=== PATIENT | female | born 1945 | race Caucasian/White ===

== ENCOUNTER 2016-09-26 16:30 | Emergency (ER) | payer OTHER ==
[2016-09-26 12:27] LABS: BASOPHILS 0.4 %; BASOPHILS ABSOLUTE 0.02 10/3/uL (0.0-0.16); EOSINOPHILS 0.6 %; EOSINOPHILS ABSOLUTE 0.03 10/3/uL (0.0-0.53); ER CBC TAT 0 Hrs 10 Mins; HEMATOCRIT 42.7 % (36.0-48.0); HEMOGLOBIN 15.1 g/dL (12.0-16.0); IMMATURE GRANULOCYTES 0.2 %; IMMATURE GRANULOCYTES ABSOLUTE 0.01 10/3/uL (0.0-0.11); LYMPHOCYTES 28.9 %; LYMPHOCYTES ABSOLUTE 1.56 10/3/uL (0.67-4.30); MANUAL DIFF NO %; MEAN CORPUS HGB CONC 35.4 g/dL (32.0-36.0); MEAN CORPUSCULAR HEMOGLOB 31.5 pg (26.0-34.0); MEAN CORPUSCULAR VOLUME 89.1 fL (80-100); MONOCYTES 14.4 %; MONOCYTES ABSOLUTE 0.78 10/3/uL (0.21-1.20); NEUTROPHILS 55.5 %; PLATELET COUNT 303 10/3/uL (150-400); RBC DISTRIBUTION WIDTH 12.7 % (12.0-16.0); RED CELL COUNT 4.79 10/6/uL (4.0-5.6); WHITE BLOOD CELLS 5.4 10/3/uL (4.5-10.5)
[2016-09-26 12:42] LABS: A/G RATIO 0.7 (0.7-1.9); ALBUMIN 3.5 G/DL (3.5-5.0); ALKALINE PHOSPHATASE 146 U/L (45-117); BUN (BLOOD UREA NITROGEN) 15 MG/DL (6-23); CALCIUM, SERUM 9.3 MG/DL (8.5-10.4); CHLORIDE, SERUM 100 MMOL/L (96-112); CO2 (CARBON DIOXIDE) 28 MMOL/L (24-34); CREATININE 0.68 MG/DL (0.55-1.02); GFR AFRICAN AMERICAN 101 ML/MIN (>=60); GFR NON AFRICAN AMERICAN 87 ML/MIN (>=60); GLOBULIN 4.8 G/DL (2.5-4.1); GLUCOSE, SERUM 76 MG/DL (60-99); POTASSIUM, SERUM 3.9 MMOL/L (3.5-5.3); SGOT(AST) 20 U/L (5-40); SGPT(ALT) 25 U/L (5-65); SODIUM, SERUM 134 MMOL/L (135-148); TOTAL BILIRUBIN 0.5 MG/DL (0-1.2); TOTAL PROTEIN 8.3 G/DL (6.0-8.5)
[2016-09-26 12:57] LABS: ASCORBIC ACID (UR NOT ORDER) NEG (NEG); BILIRUBIN, URINE NEGATIVE (NEG); ER URINALYSIS TAT 0 Hrs 14 Mins; KETONE, URINE NEGATIVE (NEG); LEUKOCYTE ESTERASE(NOT OR SMALL (NEG); NITRITE (URINE) NEG (NEG); WBC (NOT ORDERED) (RFLEX) 2 (0-5)
[~2016-09-26 16:30] MED LIST: CELEXA10 PO; CO Q-10100 MG PO; COCONUT OIL PO; COZAAR100 MG PO; FLORASTOR250 MG PO; MAGOX4 PO; SUPER B COMP PO; TRACE MINERALS PO; VANCOCIN HCL125 MG PO; VITAMIN D31000 UNIT PO; VITC500 PO; VITE PO; [UNRECOGNIZED DRUG - OTHER] PO; [UNRECOGNIZED DRUG - OTHER] PO
== END 2016-09-26 16:37 | disposition home or self-care (01) ==
LOC: ER 16:30
PROVIDERS: Emergency Medicine
DX: A04.7 Enterocolitis due to Clostridium difficile (principal); I10 Essential (primary) hypertension; F41.9 Anxiety disorder, unspecified; Z88.0 Allergy status to penicillin; Z88.2 Allergy status to sulfonamides; Z79.899 Other long term (current) drug therapy
CPT/HCPCS: 80053; 81001; 83690; 85025; 87045; 87046; 87046-59; 87086; 87328; 87329; 87493; 87493-59; 87899; 87899-59; 89055; 99284

== ENCOUNTER 2016-10-10 16:50 | Inpatient (IN) | payer OTHER ==
--- NOTE | ~2016-10-10 | CN ---
Consultation Report [facility] [address] [place]. [address] NAME: JOURDAN HINDS : 41 STATUS : ADM Keyon PAT#: [id number] AGE: 71 ADM/REG DATE : 10/10/16 MR#: [id number] REPORT SERV DATE: 10/11/16 DICTATED BY: FRANCESCO VALLES DATE: 10/11/16 REPORT STATUS : Draft TRANSCRIBED BY: MODMona DATE: 10/11/16 GI CONSULTATION DATE OF CONSULTATION: 10/11/2016 REASON FOR CONSULTATION: Evaluation and management of chronic diarrhea, history of C diff, as well as possible collagenous colitis. HISTORY OF PRESENT ILLNESS: Ms. Hinds is a very pleasant, 71-year-old, , female patient, who has been seen by Dr. Reyes Woodson since July of this year. Her previous informatica mdm developer is Dr. Amado Banks in [place], [place]. We saw her in the hospital in July of this year for diarrhea, but she was diagnosed with C diff and was treated with vancomycin. She had seen Dr. Banks in the past and had a recent upper and lower scopes and per the son, she was diagnosed with some type of colitis. He states that he was told she had ulcers in her colon. She was placed on a medication, which she took three times a day, as well as another medication that she took and tapered off. He states that she had improved somewhat. At that time, her diarrhea came back. He brought her to the hospital secondary to the diarrhea and a change of mental status, and then she was diagnosed with C diff. She was seen in followup in 08/28/[address] Woodson. She was having diarrhea again after completing a vancomycin regimen. She was rechecked and had C diff again and was placed on vancomycin, a long course taper. Per the son, she has continued to lose weight, around 40-50 pounds. She has had increasing weakness. He tells me that she is all night long having diarrhea, 15-20 stools a day. She still has diarrhea during the daytime hours, but not quite as excessive. She has not seen any blood in her bowel movements. She denies really any true abdominal pain, but her main complaint is weakness and frustration with the amount of diarrhea that she has been having. In the outpatient setting, she has been on vancomycin, and has been seen by Infectious Disease, Dr. Jose Miranda for potential stool transplantation. She has also been on Pepto-Bismol, Questran, multiple antidiarrheals, and is still presently taking vancomycin. She has had two recent negative C diff tests. I have discussed with Dr. Miranda, he feels like that her diarrhea at this point, is not secondary to C diff and feels like she may be have been colonized. I have discussed with the patient as well as the patient's son who is present at the bedside. We will plan on pursuing upper endoscopy, as well as colonoscopy to rule out any celiac disease or collagenous colitis. Risks, benefits, alternatives, and complications were detailed for them to include, but not limited to risk of bleeding, perforation, infection, reaction to medications, as well as cardiac and pulmonary side effects. She is agreeable to proceed. PAST MEDICAL HISTORY: Chronic diarrhea, "colitis," C diff, weight loss, hypertension, anxiety, and tobacco abuse. PAST SURGICAL HISTORY: Includes appendectomy and hysterectomy. FAMILY HISTORY: Father with a history of colon cancer. Consultation Report [address] [place]. [address] NAME: JOURDAN HINDS : 41 STATUS : ADM Keyon PAT#: [id number] AGE: 71 ADM/REG DATE : 10/10/16 MR#: [id number] REPORT SERV DATE: 10/11/16 DICTATED BY: FRANCESCO VALLES DATE: 10/11/16 REPORT STATUS : Draft TRANSCRIBED BY: CAITLYN DATE: 10/11/16 SOCIAL HISTORY: Positive for tobacco, one pack per day. No alcohol or illicits. Presently, she is living with her son and hjrtxxue-cy-awl. ALLERGIES: LISTED TO PENICILLIN AND SULFA. HOME MEDICATIONS: Vitamin C, vitamin B, Pepto-Bismol, vitamin D3, Prevalite, dicyclomine, Cozaar, magnesium oxide, probiotic, Gaviscon supplement, and vancomycin. REVIEW OF SYSTEMS: A 10-point review of systems has been obtained with pertinent positives being addressed in the history of present illness. PERTINENT LABORATORY DATA: Sodium is 140, potassium 4.0, BUN is 6, creatinine 0.56. White blood cell count 5.2, hemoglobin 11.5, hematocrit 33.5, platelet count of 294. INR of 1. PHYSICAL EXAMINATION: VITAL SIGNS: Temperature 97.5, pulse 73, respirations 16, blood pressure 161/77. GENERAL: Reveals an alert, female, resting in bed with no obvious focal deficits. She is cooperative. She is in no apparent distress. She is awake, alert, and oriented x3. HEAD, EARS, EYES, NOSE, AND THROAT: Anicteric. Pupils are equal, round, and reactive to light and accommodation. Normocephalic and atraumatic. NECK: No JVD. No palpable nodes. Supple. LUNGS: Clear in the upper lobes. Diminished bilaterally in the bases with normal respiratory effort exhibited. Equal expansion. CARDIOVASCULAR SYSTEM: Regular rate and rhythm. ABDOMEN: Soft, nondistended, nontender. Active bowel sounds in all four quadrants. No organomegaly. No rebound or guarding elicited on exam. EXTREMITIES: No edema. Normal distal pulses. SKIN: Warm, dry, and intact. ASSESSMENT AND PLAN: 1. Intractable diarrhea. Question if this could be secondary to collagenous colitis. Rule out celiac disease. 2. History of C diff with negative testing x2. [place] to be colonized by Infectious Disease. 3. History of "colitis" in the past. 4. Tobacco abuse. PLAN: 1. Clear liquid diet. 2. Bowel prep. 3. Stool studies. 4. Budesonide 9 mg p.o. daily. 5. EGD colon on the with Dr. Velazquez. The other recommendations to follow endoscopy. Consultation Report [address] [place]. [address] NAME: JOURDAN HINDS Tanika : 41 STATUS : ADM Keyon PAT#: [id number] AGE: 71 ADM/REG DATE : 10/10/16 MR#: [id number] REPORT SERV DATE: 10/11/16 DICTATED BY: FRANCESCO VALLES DATE: 10/11/16 REPORT STATUS : Draft TRANSCRIBED BY: CAITLYN DATE: 10/11/16 EBER/CAITLYN ROBBI Arechiga / [id number] CC: MD Michelet Rees M.D.
--- NOTE | ~2016-10-10 | EGD ---
EGD REPORT [facility] [address] [address] NAME: JOURDAN HINDS : 41 STATUS : DIS IN PAT#: [id number] AGE: 71 ADM/REG DATE : 10/10/16 MR#: [id number] REPORT SERV DATE: 10/21/16 DICTATED BY: KEVIN SHAH DATE: 10/21/16 REPORT STATUS : Draft TRANSCRIBED BY: [facility] DATE: 10/21/16 Endoscopy Center Patient Name: Jourdan Hinds Date of : 1945 Attending MD: KEVIN SHAH MD Procedure Date No Time: 10/12/2016 Procedure: Upper GI endoscopy Indications: Dyspepsia, Nausea with vomiting Referring MD: JET ZAMORA MD Medicines: Propofol per Anesthesia Complications: No immediate complications. Procedure: Pre-Anesthesia Assessment: - ASA Grade Assessment: II - A patient with mild systemic disease. After obtaining informed consent, the endoscope was passed under direct vision. Throughout the procedure, the patient's blood pressure, pulse, and oxygen saturations were monitored continuously. The GIF H190 [id number] was introduced through the mouth, and advanced to the second part of duodenum. The upper GI endoscopy was accomplished without difficulty. The patient tolerated the procedure well. Findings: The examined esophagus was normal. Scattered mild inflammation characterized by congestion (edema) and erythema was found in the gastric antrum. Biopsies were taken with a cold forceps for histology. The examined duodenum was normal. Biopsies were taken with a cold forceps for evaluation of celiac disease. Impression: - Normal esophagus. - Gastritis. Biopsied. - Normal examined duodenum. Biopsied. Recommendation: - Await pathology results. Procedure Code(s): --- Professional --- 55433, Esophagogastroduodenoscopy, flexible, transoral; with biopsy, single or multiple Diagnosis Code(s): --- Professional --- K29.70, Gastritis, unspecified, without bleeding K30, Functional dyspepsia R11.2, Nausea with vomiting, unspecified EGD REPORT [facility] [address] [address] NAME: JOURDAN HINDS Tanika : 41 STATUS : DIS IN PAT#: [id number] AGE: 71 ADM/REG DATE : 10/10/16 MR#: [id number] REPORT SERV DATE: 10/21/16 DICTATED BY: KEVIN SHAH. DATE: 10/21/16 REPORT STATUS : Draft TRANSCRIBED BY: [employer] DATE: 10/21/16 CPT copyright 2013 [employer]. All rights reserved. The codes documented in this report are preliminary and upon auditing coder review may be revised to meet current compliance requirements. KEVIN SHAH MD 10/12/2016 7:22 AM This report has been signed electronically. Number of Addenda: 0 Note Initiated On: 10/12/2016 6:55 AM Scope Withdrawal Time 0 hours 0 minutes 0 seconds [address] [address]
--- NOTE | ~2016-10-10 | DS ---
Discharge Summary [place] [id number] [facility] [place] [address] NAME: JOURDAN HINDS : 41 STATUS : DIS IN PAT#: [id number] AGE: 71 ADM/REG DATE : 10/10/16 MR#: [id number] REPORT SERV DATE: 10/15/16 DICTATED BY: VANCE KRAUSE DATE: 10/15/16 REPORT STATUS : Draft TRANSCRIBED BY: MODL DATE: 10/15/16 ADMISSION DATE: 10/10/2016 DISCHARGE DATE: 10/15/2016 DISCHARGE DIAGNOSES: 1. Intractable diarrhea secondary to collagenous colitis. 2. Previous history of collagenous colitis. 3. Previous history of Clostridium difficile colitis. 4. Hypertension. 5. Anxiety. 6. Tobacco abuse. 7. Abnormal brain MRI in July 2016, possible NPH. Outpatient lumbar puncture, large volume without change in mental status per son. Further outpatient neurology evaluation pending. OPERATION AND PROCEDURES: 10/12/2016, colonoscopy and EGD, Dr. Velazquez. PRESENT ILLNESS: This is a 71-year-old white female who was admitted by Dr. Salcedo on 10/10/2016 with intractable diarrhea as outlined on admission history and physical examination. ADDITIONAL HISTORY: Per Dr. Salcedo. PHYSICAL EXAMINATION: Per Dr. Salcedo. ADMISSION LABORATORY: Per Dr. Slacedo. HOSPITAL COURSE: Her hospital course from admission through 10/14/2016 is as outlined on interim summary dictated by Dr. Salcedo. The patient was seen by the undersigned today. She was having formed stools that were not watery. Her p.o. intake was satisfactory without nausea. She had no pain issues. She was ambulatory and not dizzy. Her vital signs were stable and there were no significant abnormalities on exam. A BMP and CBC were normal. At this point in her hospitalization, it was felt she had achieved a level of improvement and stability where she could be safely discharged to home with outpatient followup to see Dr. Velazquez and Dr. Woodson's office next week. Her son will contact her primary care physician, Dr. Guerrero in [place] for a followup. She is to have Neurology followup scheduled through the Neurosurgery office Dr. Acosta. She will have home health care evaluation and treatment to include PT/OT eval and treatment, medication reconciliation, home evaluation. Discharge Summary [place] [address] [place]. [address] NAME: JOURDAN HINDS : 41 STATUS : DIS IN PAT#: [id number] AGE: 71 ADM/REG DATE : 10/10/16 MR#: [id number] REPORT SERV DATE: 10/15/16 DICTATED BY: VANCE KRAUSE DATE: 10/15/16 REPORT STATUS : Draft TRANSCRIBED BY: MODL DATE: 10/15/16 DISCHARGE MEDICATIONS: Pending outpatient followup. Budesonide 9 mg p.o. daily, Questran 4 mg p.o. b.i.d., Bentyl 10 mg p.o. a.c. and h.s., Imodium 4 mg before meals and at bedtime unless constipation, losartan 100 mg daily, stress tab with C daily, Atarax 12.5 mg every six hours, Pepto-Bismol two tablets three times daily as needed, nicotine patch 21 mg daily. Discharge time greater than 30 minutes. DD/MODL Vance Krause M.D. / [id number] CC: Josh Cheng M.D. Vijaykurmar Patel, M.D.
--- NOTE | ~2016-10-10 | IDS ---
Interim Discharge Summary [facility] [address] [place]. [address] NAME: JOURDAN HINDS : 41 STATUS : ADM Keyon PAT#: [id number] AGE: 71 ADM/REG DATE : 10/10/16 MR#: [id number] REPORT SERV DATE: 10/15/16 DICTATED BY: ROMREO CHRISTIAN DATE: 10/14/16 REPORT STATUS : Draft TRANSCRIBED BY: MODL DATE: 10/14/16 ADMISSION DATE: 10/10/2016 DISCHARGE DATE: WORKING DIAGNOSES: 1. 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 2. Recurrent Clostridium difficile on p.o. vancomycin taper, status post negative Clostridium difficile PCR x2. 3. Smoking. 4. Hypertension. 5. Anxiety. CONSULTS: 1. GI. 2. ID. PROCEDURES AND IMAGING: Colonoscopy performed on Friday showed normal colon. Biopsies were taken and the pathology is still pending at this time. Patient also had an EGD on Friday, which was grossly benign. HOSPITAL COURSE: This is a 71-year-old lady who was admitted to the hospital with intractable diarrhea. For details, please refer to my own H and P dated 10/11/2016. In summary, patient was admitted and was evaluated for a secretory diarrhea and probable exacerbation of underlying collagenous microscopic colitis. Patient apparently came with a diagnosis of collagenous microscopic colitis from an outside facility and thus GI was involved and they went ahead and performed a colonoscopy. The biopsies from the colonoscopy are still pending at this time. The patient was also started on a low-dose Anucort and by Friday night patient experienced improvement of her diarrhea. On Friday, patient requested nicotine patch which was given to her and then Friday night patient started having uncontrollable diarrhea again. Since there is a high association with smoking with microscopic colitis the nicotine patch was discontinued and the following night patient's diarrhea slowed down again. As patient is still continuing to have diarrhea that keeps her up at night, the plan is to follow up the pathology report from biopsy and if it is consistent with microscopic colitis, perhaps the doses of Entocort may be increased to better control the diarrhea. Otherwise, patient has remained hemodynamically stable throughout the entire hospital stay with stable labs. Patient is ready for discharge home any time when her diarrhea is better controlled. JACOB/CAITLYN Romero Christian MD / [id number] Interim Discharge Summary [address] [address] NAME: JOURDAN HINDS : 41 STATUS : ADM [place]on PAT#: [id number] AGE: 71 ADM/REG DATE : 10/10/16 MR#: [id number] REPORT SERV DATE: 10/15/16 DICTATED BY: ROMERO CHRISTIAN DATE: 10/14/16 REPORT STATUS : Draft TRANSCRIBED BY: MODL DATE: 10/14/16 CC: MD Michelet Rees M.D.
--- NOTE | ~2016-10-10 | EGD ---
EGD REPORT [facility] [address] [address] NAME: JOURDAN HINDS : 41 STATUS : ADM Keyon PAT#: [id number] AGE: 71 ADM/REG DATE : 10/10/16 MR#: [id number] REPORT SERV DATE: 10/12/16 DICTATED BY: KEVIN SHAH DATE: 10/12/16 REPORT STATUS : Draft TRANSCRIBED BY: [facility] DATE: 10/12/16 Endoscopy Center Patient Name: Jourdan Hinds Date of : 1945 Attending MD: KEVIN SHAH MD Procedure Date No Time: 10/12/2016 Procedure: Upper GI endoscopy Indications: Dyspepsia, Nausea with vomiting Referring MD: JET ZAMORA MD Medicines: Propofol per Anesthesia Complications: No immediate complications. Procedure: Pre-Anesthesia Assessment: - ASA Grade Assessment: II - A patient with mild systemic disease. After obtaining informed consent, the endoscope was passed under direct vision. Throughout the procedure, the patient's blood pressure, pulse, and oxygen saturations were monitored continuously. The GIF H190 [id number] was introduced through the mouth, and advanced to the second part of duodenum. The upper GI endoscopy was accomplished without difficulty. The patient tolerated the procedure well. Findings: The examined esophagus was normal. Scattered mild inflammation characterized by congestion (edema) and erythema was found in the gastric antrum. Biopsies were taken with a cold forceps for histology. The examined duodenum was normal. Biopsies were taken with a cold forceps for evaluation of celiac disease. Impression: - Normal esophagus. - Gastritis. Biopsied. - Normal examined duodenum. Biopsied. Recommendation: - Await pathology results. Procedure Code(s): --- Professional --- 77037, Esophagogastroduodenoscopy, flexible, transoral; with biopsy, single or multiple Diagnosis Code(s): --- Professional --- K29.70, Gastritis, unspecified, without bleeding K30, Functional dyspepsia R11.2, Nausea with vomiting, unspecified EGD REPORT [facility] [address] [address] NAME: JOURDAN HINDS Tanika : 41 STATUS : ADM [place] PAT#: [id number] AGE: 71 ADM/REG DATE : 10/10/16 MR#: [id number] REPORT SERV DATE: 10/12/16 DICTATED BY: KEVIN SHAH. DATE: 10/12/16 REPORT STATUS : Draft TRANSCRIBED BY: [employer] DATE: 10/12/16 CPT copyright 2013 [employer]. All rights reserved. The codes documented in this report are preliminary and upon care attendant review may be revised to meet current compliance requirements. KEVIN SHAH MD 10/12/2016 7:22 AM This report has been signed electronically. Number of Addenda: 0 Note Initiated On: 10/12/2016 6:55 AM Scope Withdrawal Time 0 hours 0 minutes 0 seconds [address] [address]
--- NOTE | ~2016-10-10 | EGD ---
EGD REPORT [facility] [address] [address] NAME: JOURDAN HINDS : 41 STATUS : ADM Keyon PAT#: [id number] AGE: 71 ADM/REG DATE : 10/10/16 MR#: [id number] REPORT SERV DATE: 10/12/16 DICTATED BY: KEVIN SHAH DATE: 10/12/16 REPORT STATUS : Draft TRANSCRIBED BY: [facility] DATE: 10/12/16 Endoscopy Center Patient Name: Jourdan Hinds Date of : 1945 Attending MD: KEVIN SHAH MD Procedure Date No Time: 10/12/2016 Procedure: Colonoscopy Indications: Chronic diarrhea Referring MD: JET ZAMORA MD Medicines: Propofol per Anesthesia Complications: No immediate complications. Procedure: Pre-Anesthesia Assessment: - ASA Grade Assessment: II - A patient with mild systemic disease. After I obtained informed consent, the scope was passed under direct vision. Throughout the procedure, the patient's blood pressure, pulse, and oxygen saturations were monitored continuously. The [facility] [id number] was introduced through the anus and advanced to 10 cm into the ileum. The colonoscopy was performed without difficulty. The patient tolerated the procedure well. The quality of the bowel preparation was excellent. Findings: The perianal and digital rectal examinations were normal. Multiple small-mouthed diverticula were found in the sigmoid colon. The exam was otherwise without abnormality. Biopsies were taken with a cold forceps from the entire colon for evaluation of microscopic colitis. The terminal ileum appeared normal. Impression: - Diverticulosis in the sigmoid colon. - The examination was otherwise normal. - The examined portion of the ileum was normal. Recommendation: - Await pathology results. - If biopsies show collagenous colitis, will need to start steroids given failure to Pepto. Procedure Code(s): --- Professional --- 69652, Colonoscopy, flexible, proximal to splenic flexure; with biopsy, single or multiple Diagnosis Code(s): --- Professional --- K57.30, Diverticulosis of large intestine without EGD REPORT [facility] [address] [address] NAME: JOURDAN HINDS Tanika : 41 STATUS : ADM Keyon PAT#: [id number] AGE: 71 ADM/REG DATE : 10/10/16 MR#: [id number] REPORT SERV DATE: 10/12/16 DICTATED BY: KEVIN SHAH. DATE: 10/12/16 REPORT STATUS : Draft TRANSCRIBED BY: [employer] DATE: 10/12/16 perforation or abscess without bleeding K52.9, Noninfective gastroenteritis and colitis, unspecified CPT copyright 2013 [employer]. All rights reserved. The codes documented in this report are preliminary and upon water superintendent review may be revised to meet current compliance requirements. KEVIN SHAH MD 10/12/2016 7:24 AM This report has been signed electronically. Number of Addenda: 0 Note Initiated On: 10/12/2016 6:[address] [place], [place] [address] [place] [address]
--- NOTE | ~2016-10-10 | HP ---
History And Physical [place] [id number] [facility] [place]. [address] NAME: JOURDAN HINDS : 41 STATUS : ADM [place] PAT#: [id number] AGE: 71 ADM/REG DATE : 10/10/16 MR#: [id number] REPORT SERV DATE: 10/11/16 DICTATED BY: ROMERO CHRISTIAN DATE: 10/10/16 REPORT STATUS : Draft TRANSCRIBED BY: MODL DATE: 10/10/16 DATE OF ADMISSION: 10/10/2016 CHIEF COMPLAINT: Diarrhea. HISTORY OF PRESENT ILLNESS: This is a 71-year-old lady with history of microscopic collagenous colitis as well as Clostridium difficile, presenting with intractable diarrhea. The patient was actually directly admitted via Dr. Woodson's office. The patient has apparently been suffering from worsening diarrhea over the past few weeks. The patient does have a history of recurrent Clostridium difficile for which the patient follows with Dr. Miranda. The patient is currently being evaluated for fecal transplant. However, as recent as one week ago, stool was checked for Clostridium difficile which was negative, and the patient is still on prolonged p.o. vancomycin taper. Over the past few weeks, the diarrhea has gotten worse. It is nonbloody and nonfoul smelling. It is very loose and almost watery. The patient did not have any fevers or chills. The patient also did not have any significant abdominal pain with the diarrhea. The patient has not had any recent antibiotic therapy other than the p.o. vancomycin. The patient has not suffered any weight loss. The patient did grow weak with the diarrhea. Outpatient treatments to slow the diarrhea has not been successful. The patient was thus asked for direct admission to the hospital to continue further care. Interestingly, the patient's son reports that diarrhea is actually worse at night and not as bad during the day. Also, diarrhea does not seem to be related to p.o. intake. REVIEW OF SYSTEMS: The patient has not had any fevers or chills. Also, 14-point review of systems reviewed and negative other than mentioned above. MEDICATIONS: The list is still pending at this time. PAST MEDICAL HISTORY: 1. Collagenous microscopic colitis. 2. Recurrent Clostridium difficile, for which the patient remains on prolonged p.o. vancomycin taper. The patient follows with Dr. Miranda, and the patient is currently being evaluated for fecal transplant. 3. Hypertension. 4. Anxiety. 5. Smoking. PAST SURGICAL HISTORY: 1. Appendectomy. 2. Hysterectomy. FAMILY HISTORY: 1. The patient's mother suffered from a cerebral aneurysm. 2. The patient's father had colon cancer. 3. The patient's siblings had leukemia and colon cancers. History And Physical [address] [address] NAME: JOURDAN HINDS : 41 STATUS : ADM [place] PAT#: [id number] AGE: 71 ADM/REG DATE : 10/10/16 MR#: [id number] REPORT SERV DATE: 10/11/16 DICTATED BY: ROMERO CHRISTIAN DATE: 10/10/16 REPORT STATUS : Draft TRANSCRIBED BY: CAITLYN DATE: 10/10/16 SOCIAL HISTORY: The patient does continues to smoke about one pack per day. The patient otherwise does not use any illicit drugs, and she does not consume alcohol. The patient lives at home with her son who is at bedside. PHYSICAL EXAMINATION: VITAL SIGNS: Temperature 97.7, blood pressure 146/78, pulse 93, respiratory rate 18, saturating 97% on room air. NEUROLOGIC: The patient is alert and oriented x3 with no focal neurologic deficits. GENERAL: The patient is awake, does not appear to be in acute distress, and she is cooperative. NECK: No JVD. No lymphadenopathy. Normal thyroid. CHEST: No midline sternotomy scar and no tenderness to palpation. LUNGS: Clear to auscultation bilaterally with normal respiratory effort on room air. CARDIOVASCULAR: Regular rate and rhythm with no murmurs, rubs, or gallops, and PMI is nondisplaced. ABDOMEN: Soft, nontender, with active bowel sounds, and no organomegaly. EXTREMITIES: No edema. Normal distal pulses. No calf tenderness. SKIN: Clean, dry, warm, and intact. LABORATORY DATA: There are no labs currently. ASSESSMENT: This is a 71-year-old lady with history of collagenous microscopic colitis as well as recurrent Clostridium difficile presenting with intractable diarrhea. 1. Intractable diarrhea, clinical history consistent with secretory diarrhea. 2. Recurrent Clostridium difficile, the patient is currently on prolonged p.o. vancomycin taper. The patient is also being evaluated for fecal transplant. 3. Baseline history of microscopic collagenous colitis. 4. Hypertension. 5. Anxiety. 6. Smoking. PLAN: My plan is to admit the patient under telemetry monitoring. The patient will be given IV fluid resuscitation. I will go ahead and check labs to include CBC as well as CMP. I will also check stool studies to include cultures, white blood cell count, ova and parasites, and to repeat Clostridium difficile. I will also check stool sodium and chloride. I will also check TSH level. I will go ahead and get GI consultation, and I will also notify Infectious Disease of the patient's admission. Further plans pending results of the above. Otherwise, the patient will also be seen by physical therapy given increasing weakness. For the rest of the stable past medical conditions including hypertension, anxiety, et al, I will continue home medications when home medication list becomes available. Standard DVT prophylaxis. The patient is full code at this time. JACOB/CAITLYN History And Physical [address] [address] NAME: JOURDAN HINDS : 41 STATUS : ADM [place] PAT#: [id number] AGE: 71 ADM/REG DATE : 10/10/16 MR#: [id number] REPORT SERV DATE: 10/11/16 DICTATED BY: ROMERO CHRISTIAN DATE: 10/10/16 REPORT STATUS : Draft TRANSCRIBED BY: CAITLYN DATE: 10/10/16 Romero Christian MD / [id number] CC: MD Michelet Rees M.D. Vijaykurmar Patel, M.D. Mark Anderson, M.D.
[2016-10-10] MEDS ORDERED: PREVALITE4 G1 PO (18:48)
[2016-10-10] MEDS ORDERED: BENTYL10 PO (18:49)
[2016-10-10] MEDS ORDERED: COZAAR100 MG PO (18:49)
[2016-10-10] MEDS ORDERED: PROBIOTIC PO (18:51)
[2016-10-10] MEDS ORDERED: PEPTO-BISMOL TA1 TAB PO (18:51)
[2016-10-10] MEDS ORDERED: VITC500 PO (18:52)
[2016-10-10] MEDS ORDERED: [UNRECOGNIZED DRUG - OTHER] PO (18:52)
[2016-10-10] MEDS ORDERED: VITAMIN B PO (18:52)
[2016-10-10] MEDS ORDERED: VITAMIN D31000 UNIT PO (18:53)
[2016-10-10] MEDS ORDERED: MAGOX4 PO (18:54)
[2016-10-10 18:57] LABS: BASOPHILS 0.4 %; BASOPHILS ABSOLUTE 0.02 10/3/uL (0.0-0.16); EOSINOPHILS 1.4 %; EOSINOPHILS ABSOLUTE 0.08 10/3/uL (0.0-0.53); HEMOGLOBIN 12.6 g/dL (12.0-16.0); IMMATURE GRANULOCYTES 0.2 %; IMMATURE GRANULOCYTES ABSOLUTE 0.01 10/3/uL (0.0-0.11); LYMPHOCYTES ABSOLUTE 1.83 10/3/uL (0.67-4.30); MEAN CORPUS HGB CONC 34.4 g/dL (32.0-36.0); MEAN CORPUSCULAR HEMOGLOB 30.7 pg (26.0-34.0); MEAN CORPUSCULAR VOLUME 89.1 fL (80-100); MEAN PLATELET VOLUME 9.5 fL (9.2-13.0); MONOCYTES 15.5 %; MONOCYTES ABSOLUTE 0.86 10/3/uL (0.21-1.20); NEUTROPHILS 49.5 %; NEUTROPHILS ABSOLUTE 2.74 10/3/uL (2.02-8.40); PLATELET COUNT 305 10/3/uL (150-400); RBC DISTRIBUTION WIDTH 12.8 % (12.0-16.0); RED CELL COUNT 4.11 10/6/uL (4.0-5.6); WHITE BLOOD CELLS 5.5 10/3/uL (4.5-10.5)
[2016-10-10] MEDS ORDERED: VANCOCIN HCL125 MG PO ×2 (19:01→19:02)
[2016-10-10 19:02] LABS: HEMATOCRIT 36.6 % (36.0-48.0); MANUAL DIFF NO %
[2016-10-10 19:04] LABS: PARTIAL THROMBO TIME 29.2 SEC (22.5-37.2); PROTIME (NOT ORD) 12.7 SEC (12.0-14.5)
[2016-10-10 19:22] LABS: CALCIUM, SERUM 8.4 MG/DL (8.5-10.4); CHLORIDE, SERUM 101 MMOL/L (96-112); CO2 (CARBON DIOXIDE) 32 MMOL/L (24-34); CREATININE 0.62 MG/DL (0.55-1.02); GFR AFRICAN AMERICAN 104 ML/MIN (>=60); GFR NON AFRICAN AMERICAN 89 ML/MIN (>=60); GLUCOSE, SERUM 82 MG/DL (60-99); POTASSIUM, SERUM 3.6 MMOL/L (3.5-5.3); SGOT(AST) 13 U/L (5-40); SGPT(ALT) 18 U/L (5-65); SODIUM, SERUM 137 MMOL/L (135-148); TOTAL BILIRUBIN 0.3 MG/DL (0-1.2)
[2016-10-10 19:23] LABS: A/G RATIO 0.7 (0.7-1.9); ALBUMIN 2.5 G/DL (3.5-5.0); ALKALINE PHOSPHATASE 94 U/L (45-117); BUN (BLOOD UREA NITROGEN) 9 MG/DL (6-23); GLOBULIN 3.8 G/DL (2.5-4.1); TOTAL PROTEIN 6.3 G/DL (6.0-8.5)
[2016-10-10 20:05] LABS: PROCALCITONIN <0.05 ng/mL (<0.5)
[2016-10-11 06:06] LABS: BUN (BLOOD UREA NITROGEN) 6 MG/DL (6-23); CALCIUM, SERUM 8.6 MG/DL (8.5-10.4); CHLORIDE, SERUM 107 MMOL/L (96-112); CREATININE 0.56 MG/DL (0.55-1.02); GFR AFRICAN AMERICAN 107 ML/MIN (>=60); GFR NON AFRICAN AMERICAN 93 ML/MIN (>=60); GLUCOSE, SERUM 81 MG/DL (60-99); SODIUM, SERUM 140 MMOL/L (135-148)
[2016-10-11 06:10] LABS: BASOPHILS 0.2 %; BASOPHILS ABSOLUTE 0.01 10/3/uL (0.0-0.16); EOSINOPHILS 1.9 %; HEMATOCRIT 33.5 % (36.0-48.0); HEMOGLOBIN 11.5 g/dL (12.0-16.0); IMMATURE GRANULOCYTES 0.2 %; IMMATURE GRANULOCYTES ABSOLUTE 0.01 10/3/uL (0.0-0.11); LYMPHOCYTES 32.6 %; MEAN CORPUS HGB CONC 34.3 g/dL (32.0-36.0); MEAN CORPUSCULAR HEMOGLOB 30.1 pg (26.0-34.0); MEAN CORPUSCULAR VOLUME 87.7 fL (80-100); MEAN PLATELET VOLUME 9.4 fL (9.2-13.0); MONOCYTES 14.6 %; MONOCYTES ABSOLUTE 0.76 10/3/uL (0.21-1.20); NEUTROPHILS 50.5 %; NEUTROPHILS ABSOLUTE 2.64 10/3/uL (2.02-8.40); PLATELET COUNT 294 10/3/uL (150-400); RBC DISTRIBUTION WIDTH 12.9 % (12.0-16.0); RED CELL COUNT 3.82 10/6/uL (4.0-5.6); WHITE BLOOD CELLS 5.2 10/3/uL (4.5-10.5)
[2016-10-11 06:11] LABS: CO2 (CARBON DIOXIDE) 27 MMOL/L (24-34)
[2016-10-11 06:13] LABS: MANUAL DIFF NO %
[2016-10-12 03:43] LABS: BASOPHILS 0.2 %; BASOPHILS ABSOLUTE 0.01 10/3/uL (0.0-0.16); EOSINOPHILS 0.8 %; EOSINOPHILS ABSOLUTE 0.04 10/3/uL (0.0-0.53); HEMOGLOBIN 11.6 g/dL (12.0-16.0); IMMATURE GRANULOCYTES 0.2 %; IMMATURE GRANULOCYTES ABSOLUTE 0.01 10/3/uL (0.0-0.11); LYMPHOCYTES 38.3 %; LYMPHOCYTES ABSOLUTE 1.97 10/3/uL (0.67-4.30); MEAN CORPUS HGB CONC 34.1 g/dL (32.0-36.0); MEAN CORPUSCULAR VOLUME 87.9 fL (80-100); MEAN PLATELET VOLUME 9.5 fL (9.2-13.0); MONOCYTES 11.8 %; MONOCYTES ABSOLUTE 0.61 10/3/uL (0.21-1.20); NEUTROPHILS 48.7 %; NEUTROPHILS ABSOLUTE 2.51 10/3/uL (2.02-8.40); PLATELET COUNT 305 10/3/uL (150-400); RBC DISTRIBUTION WIDTH 12.7 % (12.0-16.0); RED CELL COUNT 3.87 10/6/uL (4.0-5.6); WHITE BLOOD CELLS 5.2 10/3/uL (4.5-10.5)
[2016-10-12 03:44] LABS: MANUAL DIFF NO %
[2016-10-12 03:58] LABS: BUN (BLOOD UREA NITROGEN) 4 MG/DL (6-23); CALCIUM, SERUM 8.7 MG/DL (8.5-10.4); CHLORIDE, SERUM 105 MMOL/L (96-112); CO2 (CARBON DIOXIDE) 26 MMOL/L (24-34); CREATININE 0.47 MG/DL (0.55-1.02); GFR AFRICAN AMERICAN 114 ML/MIN (>=60); GFR NON AFRICAN AMERICAN 98 ML/MIN (>=60); GLUCOSE, SERUM 88 MG/DL (60-99); PREALBUMIN 10.8 MG/DL (17.0-43.0); SODIUM, SERUM 139 MMOL/L (135-148)
[2016-10-14 06:07] LABS: BASOPHILS 0.1 %; BASOPHILS ABSOLUTE 0.01 10/3/uL (0.0-0.16); EOSINOPHILS 1.6 %; EOSINOPHILS ABSOLUTE 0.12 10/3/uL (0.0-0.53); HEMATOCRIT 32.3 % (36.0-48.0); HEMOGLOBIN 11.1 g/dL (12.0-16.0); IMMATURE GRANULOCYTES 0.1 %; IMMATURE GRANULOCYTES ABSOLUTE 0.01 10/3/uL (0.0-0.11); LYMPHOCYTES 30.3 %; LYMPHOCYTES ABSOLUTE 2.31 10/3/uL (0.67-4.30); MEAN CORPUS HGB CONC 34.4 g/dL (32.0-36.0); MEAN CORPUSCULAR HEMOGLOB 30.3 pg (26.0-34.0); MEAN CORPUSCULAR VOLUME 88.3 fL (80-100); MEAN PLATELET VOLUME 9.8 fL (9.2-13.0); MONOCYTES ABSOLUTE 0.76 10/3/uL (0.21-1.20); NEUTROPHILS 57.9 %; NEUTROPHILS ABSOLUTE 4.42 10/3/uL (2.02-8.40); PLATELET COUNT 313 10/3/uL (150-400); RBC DISTRIBUTION WIDTH 12.8 % (12.0-16.0); RED CELL COUNT 3.66 10/6/uL (4.0-5.6)
[2016-10-14 06:08] LABS: WHITE BLOOD CELLS 7.6 10/3/uL (4.5-10.5)
[2016-10-14 06:09] LABS: MANUAL DIFF NO %
[2016-10-14 06:19] LABS: BUN (BLOOD UREA NITROGEN) 4 MG/DL (6-23); CALCIUM, SERUM 9.2 MG/DL (8.5-10.4); CHLORIDE, SERUM 103 MMOL/L (96-112); CO2 (CARBON DIOXIDE) 27 MMOL/L (24-34); CREATININE 0.52 MG/DL (0.55-1.02); GFR AFRICAN AMERICAN 110 ML/MIN (>=60); GFR NON AFRICAN AMERICAN 95 ML/MIN (>=60); GLUCOSE, SERUM 78 MG/DL (60-99); POTASSIUM, SERUM 4.6 MMOL/L (3.5-5.3); SODIUM, SERUM 136 MMOL/L (135-148)
[2016-10-15 04:57] LABS: BASOPHILS 0.2 %; BASOPHILS ABSOLUTE 0.02 10/3/uL (0.0-0.16); EOSINOPHILS 1.9 %; EOSINOPHILS ABSOLUTE 0.17 10/3/uL (0.0-0.53); HEMATOCRIT 34.6 % (36.0-48.0); IMMATURE GRANULOCYTES 0.2 %; IMMATURE GRANULOCYTES ABSOLUTE 0.02 10/3/uL (0.0-0.11); LYMPHOCYTES 25.1 %; LYMPHOCYTES ABSOLUTE 2.25 10/3/uL (0.67-4.30); MEAN CORPUS HGB CONC 34.7 g/dL (32.0-36.0); MEAN CORPUSCULAR HEMOGLOB 30.5 pg (26.0-34.0); MEAN PLATELET VOLUME 9.5 fL (9.2-13.0); MONOCYTES 9.6 %; MONOCYTES ABSOLUTE 0.86 10/3/uL (0.21-1.20); NEUTROPHILS ABSOLUTE 5.65 10/3/uL (2.02-8.40); PLATELET COUNT 340 10/3/uL (150-400); RBC DISTRIBUTION WIDTH 12.5 % (12.0-16.0); RED CELL COUNT 3.93 10/6/uL (4.0-5.6)
[2016-10-15 04:59] LABS: MANUAL DIFF NO %
[2016-10-15 05:06] LABS: BUN (BLOOD UREA NITROGEN) 9 MG/DL (6-23); CALCIUM, SERUM 8.9 MG/DL (8.5-10.4); CHLORIDE, SERUM 103 MMOL/L (96-112); CO2 (CARBON DIOXIDE) 30 MMOL/L (24-34); CREATININE 0.56 MG/DL (0.55-1.02); GFR AFRICAN AMERICAN 107 ML/MIN (>=60); GFR NON AFRICAN AMERICAN 93 ML/MIN (>=60); GLUCOSE, SERUM 83 MG/DL (60-99); POTASSIUM, SERUM 4.4 MMOL/L (3.5-5.3); SODIUM, SERUM 137 MMOL/L (135-148)
[2016-10-15] MEDS ORDERED: IMOD PO (12:11)
[2016-10-15] MEDS ORDERED: FLORASTOR250 MG PO (12:12)
[2016-10-15] MEDS ORDERED: LIPOTRIAD1 CAP PO (12:13)
[2016-10-15] MEDS ORDERED: AT25 PO (12:15)
[2016-10-15] MEDS ORDERED: HABIT21 TOP (12:16)
[2016-10-15] MEDS ORDERED: UCERIS9 MG PO (12:18)
== END 2016-10-15 13:24 | disposition home health service (06) | DRG 392 ==
LOC: 6NO 16:50
PROVIDERS: Internal Medicine; Internal Medicine Gastroenterology; Nurse Practitioner Family
PROC: 0DBE8ZX Excision of Large Intestine, Via Natural or Artificial Opening Endoscopic, Diagnostic (ICD-10-PCS; 2016-10-12)
PROC: 0DB68ZX Excision of Stomach, Via Natural or Artificial Opening Endoscopic, Diagnostic (ICD-10-PCS; principal; 2016-10-12 07:00)
PROC: 0DB98ZX Excision of Duodenum, Via Natural or Artificial Opening Endoscopic, Diagnostic (ICD-10-PCS; 2016-10-12 07:00)
DX: K52.831 Collagenous colitis (principal); I10 Essential (primary) hypertension; Z68.1 Body mass index [BMI] 19.9 or less, adult; F41.9 Anxiety disorder, unspecified; F17.210 Nicotine dependence, cigarettes, uncomplicated; K29.70 Gastritis, unspecified, without bleeding; K57.30 Diverticulosis of large intestine without perforation or abscess without bleeding; R63.4 Abnormal weight loss; Z86.19 Personal history of other infectious and parasitic diseases; Z90.710 Acquired absence of both cervix and uterus; Z80.0 Family history of malignant neoplasm of digestive organs; Z80.6 Family history of leukemia; Z88.5 Allergy status to narcotic agent; Z88.2 Allergy status to sulfonamides
CPT/HCPCS: 80048; 80053; 82438; 84132; 84134; 84145; 84302; 84443; 85025; 85610; 85730; 87045; 87046; 87046-59; 87328; 87329; 87493; 87493-59; 87899; 87899-59; 88305; 89055; 89125; 97161-GP; A9270-GY